=== PATIENT | female | born 1985 | race African-American/Black ===

== ENCOUNTER 2019-01-01 16:38 | Emergency (ER) | payer SELFPAY ==
--- OUTSIDE RECORDS SUMMARY | 2019-01-01 16:40 | XMS REPORT ---
:1985 [facility] Address [address] [place] [address] Care Team Providers Name Role Phone HAYDE SEALS Unavailable Unavailable SARBJIT KEN Unavailable Unavailable Problems This patient has no known problems. Allergies, Adverse Reactions, Alerts This patient has no known allergies or adverse reactions. Medications This patient has no known medications. Results Test Description Test Time Test Comments Text Results Atomic Results Result Comments BLOOD CULTURE 2017-03-01 00:00:00 Test Item Value Reference Range Comments CULTURE (BEAKER) (test vgkg=6299) No growth in 5 days BLOOD [id number] 00:00:00 Test Item Value Reference Range Comments CULTURE (BEAKER) (test hbye=9403) No growth in 5 days BASIC METABOLIC [id number] 16:41:00 Test Item Value Reference Range Comments SODIUM (BEAKER) (test 138 meq/L 136-145 qcsp=470) POTASSIUM (BEAKER) (test 4.5 meq/L 3.5-5.1 Specimen slightly xhti=817) hemolyzed CHLORIDE (BEAKER) (test 100 meq/L 98-107 rigv=511) CO2 (BEAKER) (test 23 meq/L 22-29 tlua=643) BLOOD UREA NITROGEN 7 mg/dL 7-21 (BEAKER) (test wcyz=701) CREATININE (BEAKER) (test 0.79 mg/dL 0.57-1.25 Specimen slightly vugd=188) hemolyzed GLUCOSE RANDOM (BEAKER) 84 mg/dL 70-105 (test chze=709) CALCIUM (BEAKER) (test 10.9 mg/dL 8.4-10.2 amkv=250) EGFR (BEAKER) (test 104 mL/min/1.73 sq m ESTIMATED GFR IS NOT vbue=8972) ACCURATE CREATININE CLEARANCE IN PREDICTING GLOMERULAR FILTRATION RATE. ESTIMATED GFR IS NOT APPLICABLE FOR DIALYSIS PATIENTS. CBC W/PLT COUNT & AUTO [id number] 16:28:00 Test Item Value Reference Range Comments WHITE BLOOD CELL COUNT (BEAKER) (test qkij=577) 12.8 K/ L 4.0-10.0 RED BLOOD CELL COUNT (BEAKER) (test njig=011) 4.90 M/ L 4.00-5.00 HEMOGLOBIN (BEAKER) (test poge=277) 14.3 GM/DL 12.0-15.0 HEMATOCRIT (BEAKER) (test yhue=882) 45.0 % 36.0-45.0 MEAN CORPUSCULAR VOLUME (BEAKER) (test lclg=166) 91.9 fL 82.0-99.0 MEAN CORPUSCULAR HEMOGLOBIN (BEAKER) (test 29.3 pg 27.0-33.0 cbiv=893) MEAN CORPUSCULAR HEMOGLOBIN CONC (BEAKER) (test 31.9 GM/DL 32.0-36.0 zqii=235) RED CELL DISTRIBUTION WIDTH (BEAKER) (test 13.8 % 10.3-14.2 wcwt=013) PLATELET COUNT (BEAKER) (test ssvn=772) 425 K/CU MM 150-430 MEAN PLATELET VOLUME (BEAKER) (test nsjx=754) 7.1 fL 6.5-10.5 NUCLEATED RED BLOOD CELLS (BEAKER) (test 0 /100 WBC 0-0 effq=395) NEUTROPHILS RELATIVE PERCENT (BEAKER) (test 75 % pfiy=779) LYMPHOCYTES RELATIVE PERCENT (BEAKER) (test 18 % mejz=044) MONOCYTES RELATIVE PERCENT (BEAKER) (test 6 % pckb=770) EOSINOPHILS RELATIVE PERCENT (BEAKER) (test 1 % eiwe=902) BASOPHILS RELATIVE PERCENT (BEAKER) (test 0 % exbq=915) NEUTROPHILS ABSOLUTE COUNT (BEAKER) (test 9.56 K/ L 1.80-8.00 qeqq=872) LYMPHOCYTES ABSOLUTE COUNT (BEAKER) (test 2.30 K/ L 1.48-4.50 oflj=125) MONOCYTES ABSOLUTE COUNT (BEAKER) (test 0.76 K/ L 0.00-1.30 fvol=622) EOSINOPHILS ABSOLUTE COUNT (BEAKER) (test 0.09 K/ L 0.00-0.50 grdy=440) BASOPHILS ABSOLUTE COUNT (BEAKER) (test 0.06 K/ L 0.00-0.20 rlbk=632) 0.00CBC W/PLT COUNT & AUTO [id number] 08:40:00 Test Item Value Reference Range Comments WHITE BLOOD CELL COUNT (BEAKER) (test cbfz=741) 13.1 K/ L 4.0-10.0 RED BLOOD CELL COUNT (BEAKER) (test dpwp=558) 3.88 M/ L 4.00-5.00 HEMOGLOBIN (BEAKER) (test ecjx=642) 11.6 GM/DL 12.0-15.0 HEMATOCRIT (BEAKER) (test uchk=289) 36.3 % 36.0-45.0 MEAN CORPUSCULAR VOLUME (BEAKER) (test xcvj=428) 93.6 fL 82.0-99.0 MEAN CORPUSCULAR HEMOGLOBIN (BEAKER) (test 30.1 pg 27.0-33.0 ylcj=237) MEAN CORPUSCULAR HEMOGLOBIN CONC (BEAKER) (test 32.1 GM/DL 32.0-36.0 frqq=810) RED CELL DISTRIBUTION WIDTH (BEAKER) (test 12.5 % 10.3-14.2 adez=194) PLATELET COUNT (BEAKER) (test kcul=261) 231 K/CU MM 150-430 MEAN PLATELET VOLUME (BEAKER) (test zmje=763) 8.5 fL 6.5-10.5 NUCLEATED RED BLOOD CELLS (BEAKER) (test 0 /100 WBC 0-0 qazr=500) NEUTROPHILS RELATIVE PERCENT (BEAKER) (test 89 % fdzt=673) LYMPHOCYTES RELATIVE PERCENT (BEAKER) (test 8 % bxye=730) MONOCYTES RELATIVE PERCENT (BEAKER) (test 3 % uwve=958) EOSINOPHILS RELATIVE PERCENT (BEAKER) (test 0 % rwhb=096) BASOPHILS RELATIVE PERCENT (BEAKER) (test 0 % eunj=303) NEUTROPHILS ABSOLUTE COUNT (BEAKER) (test 11.60 K/ L 1.80-8.00 lieo=737) LYMPHOCYTES ABSOLUTE COUNT (BEAKER) (test 1.05 K/ L 1.48-4.50 aeja=717) MONOCYTES ABSOLUTE COUNT (BEAKER) (test 0.39 K/ L 0.00-1.30 rrpc=538) EOSINOPHILS ABSOLUTE COUNT (BEAKER) (test 0.03 K/ L 0.00-0.50 hxaj=382) BASOPHILS ABSOLUTE COUNT (BEAKER) (test 0.00 K/ L 0.00-0.20 ipwr=608) 0.00BASIC METABOLIC [id number] 07:13:00 Test Item Value Reference Range Comments SODIUM (BEAKER) (test 137 meq/L 136-145 mwvt=218) POTASSIUM (BEAKER) (test 4.6 meq/L 3.5-5.1 wewm=359) CHLORIDE (BEAKER) (test 108 meq/L 98-107 ntbo=532) CO2 (BEAKER) (test 18 meq/L 22-29 hhsv=830) BLOOD UREA NITROGEN 10 mg/dL 7-21 (BEAKER) (test sqan=262) CREATININE (BEAKER) (test 0.68 mg/dL 0.57-1.25 fxhj=608) GLUCOSE RANDOM (BEAKER) 104 mg/dL 70-105 (test yejy=014) CALCIUM (BEAKER) (test 8.6 mg/dL 8.4-10.2 bwby=297) EGFR (BEAKER) (test 123 mL/min/1.73 sq m ESTIMATED GFR IS NOT odil=7260) ACCURATE CREATININE CLEARANCE IN PREDICTING GLOMERULAR FILTRATION RATE. ESTIMATED GFR IS NOT APPLICABLE FOR DIALYSIS PATIENTS.
--- OUTSIDE RECORDS SUMMARY | 2019-01-01 16:40 | XMS REPORT | Clinical Summary ---
:[address] [facility] Address [address] [place] [address] Care Team Providers Name Role Phone Lay Primary Care Provider Allergies No Known Allergies Medications Medication Sig Dispensed Refills Start Date End Date Status HYDROcodone-acetaminop Take 1 tablet by 30 tablet 0 02/17/2017 Active hen (NORCO 5-325) mouth every 6 5-325 mg per tablet (six) hours as needed for Pain. Max Daily Amount: 4 tablets ibuprofen Take 1 tablet (600 20 tablet 0 02/24/2017 Active (ADVIL,MOTRIN) 600 MG mg total) by mouth tablet every 6 (six) hours as needed for Pain for up to 20 doses. Active Problems Problem Noted Date Pain 02/18/2017 Facial swelling 02/18/2017 Unable to eat solid foods 02/18/2017 Abscess of submandibular region 02/16/2017 Family History Medical History Relation Name Comments Diabetes Maternal Aunt Hypertension Mother Relation Name Status Comments Maternal Aunt Mother Social History Tobacco Use Types Packs/Day Years Used Date Current Every Day Smoker 0.25 Tobacco Cessation: Ready to Quit: No; Counseling Given: Yes Alcohol Use Drinks/Week oz/Week Comments Yes Social, never > 5 drinks at one time Sex Assigned at Date Recorded Not on file Job Start Date Occupation Industry Not on file Not on file Not on file Travel History Travel Start Travel End No recent travel history available. Last Filed Vital Signs Not on file Plan of Treatment Not on file Results Not on fileafter 12/31/2017 Advance Directives For more information, please contact:[facility] [phone] Code Status Date Activated Date Inactivated Comments Full Code 02/16/2017 12:53 AM 02/17/2017 8:36 PM This code status was determined by: Patient
[2019-01-01] MEDS ORDERED: ALBUTEROL 2.5 MG/3 ML NEB SOL ONE (18:57)
[2019-01-01] MEDS ORDERED: IPRATROPIUM BROM 0.5MG/2.5ML ONE (18:57)
--- NOTE | 2019-01-01 19:07 | RAD REPORT ---
EXAM DESCRIPTION: RAD - Chest Pa And Lat (2 Views) - 01/01/2019 6:05 pm CLINICAL HISTORY: Cough, patient , abdominal shielding utilized COMPARISON: December 2015 TECHNIQUE: PA and lateral views of the chest were obtained. FINDINGS: The lungs are clear of a focal process. Interstitial markings are similar to comparison. Heart size is normal and central vasculature is within normal limits. No pleural effusion or pneumo thorax seen. No acute bony finding noted. No aortic abnormality. IMPRESSION: No acute cardiopulmonary process. No significant interval change.
--- NOTE | 2019-01-01 19:14 | EDPHYS ---
Physician Documentation [facility] Name: Antonio Travis Age: 33 yrs Sex: Female : 1985 Arrival Date: 01/01/2019 Time: 16:40 Bed 25 Private MD: None, None ED Physician Joshua Alan HPI: 01/01 18:54 This 33 yrs old Black Female presents to ER via Ambulatory with complaints of Painful kb Cough. 18:54 The patient or guardian reports cough, that is intermittent, described as mild, with no kb sputum, difficulty breathing. Onset: The symptoms/episode began/occurred 3 day(s) ago. Severity of symptoms: At their worst the symptoms were moderate, in the emergency department the symptoms are unchanged. Modifying factors: The symptoms are alleviated by nothing, the symptoms are aggravated by nothing. Associated signs and symptoms: The patient has no apparent associated signs or symptoms. The patient has not experienced similar symptoms in the past. The patient has not recently seen a physician. Historical: - Allergies: 16:53 No Known Allergies; hb - Home Meds: 16:53 None [Active]; hb - PMHx: 16:53 None; hb - PSHx: 16:53 D \T\ C; hb - Immunization history:: Adult Immunizations up to date. - Social history:: Smoking status: Patient/guardian denies using tobacco. - Ebola Screening: : No symptoms or risks identified at this time. ROS: 18:52 Constitutional: Negative for fever, chills, and weight loss, Cardiovascular: Negative kb for chest pain, palpitations, and edema, Abdomen/GI: Negative for abdominal pain, nausea, vomiting, diarrhea, and constipation, MS/Extremity: Negative for injury and deformity, Skin: Negative for injury, rash, and discoloration, Neuro: Negative for headache, weakness, numbness, tingling, and seizure. 18:52 Respiratory: Positive for cough, shortness of breath, Negative for dyspnea on exertion, hemoptysis, orthopnea, pleurisy, sputum production. Exam: 18:53 Constitutional: This is a well developed, well nourished patient who is awake, alert, kb and in no acute distress. Head/Face: Normocephalic, atraumatic. Chest/axilla: Normal chest wall appearance and motion. Nontender with no deformity. No lesions are appreciated. Cardiovascular: Regular rate and rhythm with a normal S1 and S2. No gallops, murmurs, or rubs. Normal PMI, no JVD. No pulse deficits. Abdomen/GI: Soft, non-tender, with normal bowel sounds. No distension or tympany. No guarding or rebound. No evidence of tenderness throughout. Skin: Warm, dry with normal turgor. Normal color with no rashes, no lesions, and no evidence of cellulitis. MS/ Extremity: Pulses equal, no cyanosis. Neurovascular intact. Full, normal range of motion. Neuro: Awake and alert, GCS 15, oriented to person, place, time, and situation. Cranial nerves II-XII grossly intact. Motor strength 5/5 in all extremities. Sensory grossly intact. Cerebellar exam normal. Normal gait. 18:53 Respiratory: the patient does not display signs of respiratory distress, Respirations: labored breathing, that is mild, Breath sounds: wheezing: inspiratory expiratory that is mild, is heard diffusely. Vital Signs: 16:52 BP 113 / 52; Pulse 92; Resp 16; Temp 98.3; Pulse Ox 98% on R/A; Pain 9/10; hb MDM: 18:23 Patient medically screened. kb 18:51 Data reviewed: vital signs, nurses notes. Data interpreted: Pulse oximetry: on room air kb is 98 %. Interpretation: normal. 19:13 Counseling: I had a detailed discussion with the patient and/or guardian regarding: the kb historical points, exam findings, and any diagnostic results supporting the discharge/admit diagnosis, radiology results, the need for outpatient follow up, a family practitioner, to return to the emergency department if symptoms worsen or persist or if there are any questions or concerns that arise at home. 01/01 17:30 Order name: Chest Pa And Lat (2 Views) XRAY; Complete Time: 19:09 snw Administered Medications: 18:51 Drug: Albuterol - atroVENT (3:1) (2.5 mg - 0.5 mg) 3 ml Route: Nebulizer; la1 19:18 Follow up: Response: No adverse reaction; Wheezing diminished la1 Disposition: 01/01/19 19:13 Discharged to Home. Impression: Bronchitis, not specified as acute or chronic. - Condition is Stable. - Discharge Instructions: Acute Bronchitis, [id number], Viral Respiratory Infection, [id number]. - Prescriptions for Albuterol Sulfate 90 mcg/actuation - inhale 1-2 puff by INHALATION route every 4-6 hours; 1 Inhaler. - Medication Reconciliation Form, Thank You Letter, Antibiotic Education, Prescription Opioid Use form. - Follow up: Emergency Department; When: As needed; Reason: Worsening of condition. Follow up: Private Physician; When: 2 - 3 days; Reason: Recheck today's complaints, Continuance of care, Re-evaluation by your physician. Addendum: 01/03/2019 07:07 Co-signature as Attending Physician, Joshua Alan MD. r n Signatures: Dispatcher [employer] EDMS Luly Winn, LIU-C SCALP SPECIALIST-Ckb Krysta Vick FNP-C FNP-Csnw Joshua Alan MD MD rn Attema, Lee, RN RN la1 Soni Raymond RN RN Corrections: (The following items were deleted from the chart) 01/01 19:19 19:13 01/01/2019 19:13 Discharged to Home. Impression: Bronchitis, not specified as la1 acute or chronic. Condition is Stable. Forms are Medication Reconciliation Form, Thank You Letter, Antibiotic Education, Prescription Opioid Use. Follow up: Emergency Department; When: As needed; Reason: Worsening of condition. Follow up: Private Physician; When: 2 - 3 days; Reason: Recheck today's complaints, Continuance of care, Re-evaluation by your physician. kb
--- NOTE | 2019-01-01 19:14 | ER ---
Nurse's Notes [facility] Name: Antonio Travis Age: 33 yrs Sex: Female : 1985 Arrival Date: 01/01/2019 Time: 16:40 Bed 25 Private MD: None, None Diagnosis: Bronchitis, not specified as acute or chronic Presentation: 01/01 16:51 Presenting complaint: Patient states: Chest congestion, nonproductive cough, pain with hb cough, and low back pain x 3 days. Denies fever. Transition of care: patient was not received from another setting of care. Onset of symptoms was December 30, 2018. Risk Assessment: Do you want to hurt yourself or someone else? Patient reports no desire to harm self or others. Care prior to arrival: None. 16:51 Method Of Arrival: Ambulatory 16:51 Acuity: YOSHI 4 hb Historical: - Allergies: 16:53 No Known Allergies; hb - Home Meds: 16:53 None [Active]; hb - PMHx: 16:53 None; hb - PSHx: 16:53 D \T\ C; hb - Immunization history:: Adult Immunizations up to date. - Social history:: Smoking status: Patient/guardian denies using tobacco. - Ebola Screening: : No symptoms or risks identified at this time. Screenin:52 Abuse screen: Denies threats or abuse. Nutritional screening: No deficits noted. la1 Tuberculosis screening: No symptoms or risk factors identified. Fall Risk None identified. Assessment: 18:51 General: Appears in no apparent distress. Behavior is calm, cooperative. Pain: Denies la1 pain. Neuro: Level of Consciousness is awake, alert, obeys commands, Oriented to person, place, time, situation. Cardiovascular: Capillary refill < 3 seconds Patient's skin is warm and dry. Respiratory: Airway is patent Respiratory effort is even, unlabored, Respiratory pattern is regular, symmetrical. Respiratory: Breath sounds with wheezes bilaterally. GI: No signs and/or symptoms were reported involving the gastrointestinal system. : No signs and/or symptoms were reported regarding the genitourinary system. 19:18 Reassessment: Patient is alert, oriented x 3, equal unlabored respirations, skin la1 warm/dry/pink. Patient states symptoms have improved. Vital Signs: 16:52 BP 113 / 52; Pulse 92; Resp 16; Temp 98.3; Pulse Ox 98% on R/A; Pain 9/10; hb ED Course: 16:40 Patient arrived in ED. sb2 16:40 None, None is Private Physician. sb2 16:52 Triage completed. hb 16:53 Arm band placed on. hb 18:03 Chest Pa And Lat (2 Views) XRAY In Process Unspecified. EDMS 18:23 Luly Winn F[facility]-C [facility] kb 18:23 Joshua Alan MD is Attending Physician. kb 18:28 Kvng Prado, NAVEEN is Primary Nurse. la1 18:52 Call light in reach. la1 18:52 No provider procedures requiring assistance completed. Patient did not have IV access la1 during this emergency room visit. Administered Medications: 18:51 Drug: Albuterol - atroVENT (3:1) (2.5 mg - 0.5 mg) 3 ml Route: Nebulizer; la1 19:18 Follow up: Response: No adverse reaction; Wheezing diminished la1 Outcome: 19:13 Discharge ordered by . kb 19:18 Discharged to home ambulatory. la1 19:18 Condition: stable 19:18 Discharge instructions given to patient, Instructed on discharge instructions, follow up and referral plans. medication usage, Demonstrated understanding of instructions, follow-up care, medications, Prescriptions given X 1. 19:19 Patient left the ED. la1 Signatures: Dispatcher [employer] EDTX Luly Winn FNP-C FNP-Ckb Attema, Lee, RN RN la1 Soni Raymond RN RN Myra Ribera sb2
== END 2019-01-01 19:19 | disposition home or self-care (01) ==
LOC: ER 16:38
DX: J40 Bronchitis, not specified as acute or chronic (principal)
CPT/HCPCS: 71046; 94640; 99284

== ENCOUNTER 2019-01-12 23:18 | Emergency (ER) | payer SELFPAY ==
--- OUTSIDE RECORDS SUMMARY | 2019-01-12 23:20 | XMS REPORT | Clinical Summary ---
:1985 [facility] Address [address] [place] [address] Care Team Providers Name Role Phone Lay [...] Not on file Results Not on fileafter 01/11/2018 Advance Directives For more information, please contact:[facility] [phone] Code Status Date Activated Date Inactivated Comments Full Code 02/16/2017 12:53 AM 02/17/2017 8:36 PM This code status was determined by: Patient
--- OUTSIDE RECORDS SUMMARY | 2019-01-12 23:20 | XMS REPORT ---
:1985 [facility] Address [address] [place] [address] [address] [place] [id number] Care Team Providers Name Role Phone ARNELHAYDE Unavailable Unavailable SARBJIT KEN Unavailable Unavailable Problems This patient has no known problems. Allergies, Adverse Reactions, Alerts This patient has no known allergies or adverse reactions. Medications This patient has no known medications. Results Test Description Test Time Test Comments Text Results Atomic Results Result Comments BLOOD CULTURE 2017-03-01 00:00:00 Test Item Value Reference Range Comments CULTURE (BEAKER) (test zbtp=5890) No growth in 5 days BLOOD [id number] 00:00:00 Test Item Value Reference Range Comments CULTURE (BEAKER) (test qxku=7527) No growth in 5 days BASIC METABOLIC [id number] 16:41:00 Test Item Value Reference Range Comments SODIUM (BEAKER) (test 138 meq/L 136-145 vqto=190) POTASSIUM (BEAKER) (test 4.5 meq/L 3.5-5.1 Specimen slightly qite=509) hemolyzed CHLORIDE (BEAKER) (test 100 meq/L 98-107 sony=491) CO2 (BEAKER) (test 23 meq/L 22-29 imxn=323) BLOOD UREA NITROGEN 7 mg/dL 7-21 (BEAKER) (test shxc=035) CREATININE (BEAKER) (test 0.79 mg/dL 0.57-1.25 Specimen slightly bjhm=331) hemolyzed GLUCOSE RANDOM (BEAKER) 84 mg/dL 70-105 (test xcdz=568) CALCIUM (BEAKER) (test 10.9 mg/dL 8.4-10.2 jgga=378) EGFR (BEAKER) (test 104 mL/min/1.73 sq m ESTIMATED GFR IS NOT ioml=8433) ACCURATE CREATININE CLEARANCE IN PREDICTING GLOMERULAR FILTRATION RATE. ESTIMATED GFR IS NOT APPLICABLE FOR DIALYSIS PATIENTS. CBC W/PLT COUNT & AUTO [id number] 16:28:00 Test Item Value Reference Range Comments WHITE BLOOD CELL COUNT (BEAKER) (test vvjk=731) 12.8 K/ L 4.0-10.0 RED BLOOD CELL COUNT (BEAKER) (test ohgj=014) 4.90 M/ L 4.00-5.00 HEMOGLOBIN (BEAKER) (test pzgu=009) 14.3 GM/DL 12.0-15.0 HEMATOCRIT (BEAKER) (test mgkn=549) 45.0 % 36.0-45.0 MEAN CORPUSCULAR VOLUME (BEAKER) (test ycpe=808) 91.9 fL 82.0-99.0 MEAN CORPUSCULAR HEMOGLOBIN (BEAKER) (test 29.3 pg 27.0-33.0 jqcz=790) MEAN CORPUSCULAR HEMOGLOBIN CONC (BEAKER) (test 31.9 GM/DL 32.0-36.0 xlhz=215) RED CELL DISTRIBUTION WIDTH (BEAKER) (test 13.8 % 10.3-14.2 kdft=048) PLATELET COUNT (BEAKER) (test hmic=082) 425 K/CU MM 150-430 MEAN PLATELET VOLUME (BEAKER) (test altz=926) 7.1 fL 6.5-10.5 NUCLEATED RED BLOOD CELLS (BEAKER) (test 0 /100 WBC 0-0 efou=111) NEUTROPHILS RELATIVE PERCENT (BEAKER) (test 75 % rlap=897) LYMPHOCYTES RELATIVE PERCENT (BEAKER) (test 18 % knvw=477) MONOCYTES RELATIVE PERCENT (BEAKER) (test 6 % xvnu=243) EOSINOPHILS RELATIVE PERCENT (BEAKER) (test 1 % kwda=867) BASOPHILS RELATIVE PERCENT (BEAKER) (test 0 % bwvn=048) NEUTROPHILS ABSOLUTE COUNT (BEAKER) (test 9.56 K/ L 1.80-8.00 rpgg=788) LYMPHOCYTES ABSOLUTE COUNT (BEAKER) (test 2.30 K/ L 1.48-4.50 ekzm=684) MONOCYTES ABSOLUTE COUNT (BEAKER) (test 0.76 K/ L 0.00-1.30 gjsn=989) EOSINOPHILS ABSOLUTE COUNT (BEAKER) (test 0.09 K/ L 0.00-0.50 yltn=628) BASOPHILS ABSOLUTE COUNT (BEAKER) (test 0.06 K/ L 0.00-0.20 wsaa=030) 0.00CBC W/PLT COUNT & AUTO [id number] 08:40:00 Test Item Value Reference Range Comments WHITE BLOOD CELL COUNT (BEAKER) (test tprp=297) 13.1 K/ L 4.0-10.0 RED BLOOD CELL COUNT (BEAKER) (test pduu=540) 3.88 M/ L 4.00-5.00 HEMOGLOBIN (BEAKER) (test cuek=050) 11.6 GM/DL 12.0-15.0 HEMATOCRIT (BEAKER) (test avia=248) 36.3 % 36.0-45.0 MEAN CORPUSCULAR VOLUME (BEAKER) (test qliq=761) 93.6 fL 82.0-99.0 MEAN CORPUSCULAR HEMOGLOBIN (BEAKER) (test 30.1 pg 27.0-33.0 lsbk=228) MEAN CORPUSCULAR HEMOGLOBIN CONC (BEAKER) (test 32.1 GM/DL 32.0-36.0 hpdr=588) RED CELL DISTRIBUTION WIDTH (BEAKER) (test 12.5 % 10.3-14.2 zvme=972) PLATELET COUNT (BEAKER) (test apyv=153) 231 K/CU MM 150-430 MEAN PLATELET VOLUME (BEAKER) (test dwem=366) 8.5 fL 6.5-10.5 NUCLEATED RED BLOOD CELLS (BEAKER) (test 0 /100 WBC 0-0 buaa=052) NEUTROPHILS RELATIVE PERCENT (BEAKER) (test 89 % tuwn=087) LYMPHOCYTES RELATIVE PERCENT (BEAKER) (test 8 % pccg=684) MONOCYTES RELATIVE PERCENT (BEAKER) (test 3 % llab=646) EOSINOPHILS RELATIVE PERCENT (BEAKER) (test 0 % bwfu=595) BASOPHILS RELATIVE PERCENT (BEAKER) (test 0 % gkhm=684) NEUTROPHILS ABSOLUTE COUNT (BEAKER) (test 11.60 K/ L 1.80-8.00 fxkz=307) LYMPHOCYTES ABSOLUTE COUNT (BEAKER) (test 1.05 K/ L 1.48-4.50 pxgo=125) MONOCYTES ABSOLUTE COUNT (BEAKER) (test 0.39 K/ L 0.00-1.30 ynrt=224) EOSINOPHILS ABSOLUTE COUNT (BEAKER) (test 0.03 K/ L 0.00-0.50 hzpx=636) BASOPHILS ABSOLUTE COUNT (BEAKER) (test 0.00 K/ L 0.00-0.20 zuwz=927) 0.00BASIC METABOLIC [id number] 07:13:00 Test Item Value Reference Range Comments SODIUM (BEAKER) (test 137 meq/L 136-145 xwit=247) POTASSIUM (BEAKER) (test 4.6 meq/L 3.5-5.1 vgku=795) CHLORIDE (BEAKER) (test 108 meq/L 98-107 cynp=392) CO2 (BEAKER) (test 18 meq/L 22-29 bsau=918) BLOOD UREA NITROGEN 10 mg/dL 7-21 (BEAKER) (test zjfc=055) CREATININE (BEAKER) (test 0.68 mg/dL 0.57-1.25 vpfo=285) GLUCOSE RANDOM (BEAKER) 104 mg/dL 70-105 (test idmm=398) CALCIUM (BEAKER) (test 8.6 mg/dL 8.4-10.2 zdig=971) EGFR (BEAKER) (test 123 mL/min/1.73 sq m ESTIMATED GFR IS NOT hxfd=0505) ACCURATE CREATININE CLEARANCE IN PREDICTING GLOMERULAR FILTRATION RATE. ESTIMATED GFR IS NOT APPLICABLE FOR DIALYSIS PATIENTS.
[2019-01-13 02:11] LABS: Hematocrit 37.6 % (36.0-45.0); MPV 9.9 fL (7.6-11.3); RBC Red Blood Cell Count 4.23 M/uL (3.86-4.86)
--- NOTE | 2019-01-13 04:03 | ER ---
Nurse's Notes [facility] Name: Antonio Travis Age: 33 yrs Sex: Female : 1985 Arrival Date: 01/12/2019 Time: 23:21 Bed 23 Private MD: Diagnosis: Antepartum hemorrhage, unspecified, first trimester Presentation: 01/12 23:24 Presenting complaint: Patient states: tripped and fell falling on buttocks. Care prior kl to arrival: None. Mechanism of Injury: Fall. Trauma event details: Injury occurred in the [facility]. 23:24 Acuity: YOSHI 4 kl 23:24 Method Of Arrival: Ambulatory kl 23:27 Transition of care: patient was not received from another setting of care. Onset of kl symptoms was January 12, 2019. Risk Assessment: Do you want to hurt yourself or someone else? Patient reports no desire to harm self or others. Initial Sepsis Screen: Does the patient meet any 2 criteria? No. Patient's initial sepsis screen is negative. Note pt reports blood on tissue when wiping reports 8 weeks . Triage Assessment: 23:26 General: Appears in no apparent distress. Behavior is calm, cooperative. Pain: Denies kl pain. Complains of pain in abdomen Pain currently is 4 out of 10 on a pain scale. 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 - Social history:: Smoking status: Patient/guardian denies using tobacco. - Ebola Screening: : Patient negative for fever greater than or equal to 101.5 degrees Fahrenheit, and additional compatible Ebola Virus Disease symptoms. Screenin/22 00:39 Abuse screen: Denies threats or abuse. Denies injuries from another. Nutritional aa1 screening: No deficits noted. Tuberculosis screening: No symptoms or risk factors identified. Fall Risk None identified. Assessment: 00:38 General: Appears in no apparent distress. comfortable, Behavior is calm, cooperative, aa1 appropriate for age. Pain: Denies pain. Neuro: Level of Consciousness is awake, alert, obeys commands, Oriented to person, place, time, situation, Moves all extremities. Full function Gait is steady. Respiratory: Airway is patent Respiratory effort is even, unlabored, Respiratory pattern is regular, symmetrical. GI: No signs and/or symptoms were reported involving the gastrointestinal system. : Reports vaginal bleeding that is spotty. EENT: No signs and/or symptoms were reported regarding the EENT system. Derm: Skin is intact, is healthy with good turgor, Skin is pink, warm \T\ dry. Musculoskeletal: Circulation, motion, and sensation intact. Capillary refill < 3 seconds, Range of motion: intact in all extremities. 01:49 Reassessment: Patient appears in no apparent distress at this time. Patient and/or aa1 family updated on plan of care and expected duration. Pain level reassessed. Patient is alert, oriented x 3, equal unlabored respirations, skin warm/dry/pink. Awaiting u/s and lab results. 02:45 Reassessment: Patient appears in no apparent distress at this time. Patient and/or aa1 family updated on plan of care and expected duration. Pain level reassessed. Patient is alert, oriented x 3, equal unlabored respirations, skin warm/dry/pink. Awaiting HCG level for u/s. 03:45 Reassessment: Patient and/or family updated on plan of care and expected duration. Pain fc level reassessed. Patient is alert, oriented x 3, equal unlabored respirations, skin warm/dry/pink. Ultrasound just left. Pt states that there has been no change in overall condition. 04:10 Reassessment: Arnold in to see pt and give her the results to her ultrasound. fc Vital Signs: 01/12 23:28 BP 116 / 90; Pulse 82; Resp 16; Temp 98(TE); Pulse Ox 100% on R/A; Pain 4/10; kl 01/13 00:38 BP 119 / 84; Pulse 72; Resp 16; Pulse Ox 100% on R/A; Pain 0/10; aa1 01:49 BP 108 / 55; Pulse 75; Resp 16; Pulse Ox 99% on R/A; Pain 0/10; aa1 02:45 BP 106 / 67; Pulse 71; Resp 16; Pulse Ox 99% on R/A; Pain 0/10; aa1 04:23 BP 107 / 51; Pulse 77; Resp 18; Temp 98.0(O); Pulse Ox 100% on R/A; Pain 2/10; fc ED Course: 01/12 23:21 Patient arrived in ED. am2 23:24 Triage completed. 01/13 00:33 Dina Dennison, RN is Primary Nurse. aa1 00:39 Patient has correct armband on for positive identification. Bed in low position. Call aa1 light in reach. Pulse ox on. NIBP on. Warm blanket given. 01:02 Eleuterio Arnold MD is Attending Physician. 01:20 Initial lab(s) drawn, by nv, sent to lab. Inserted saline lock: 22 gauge in left aa1 antecubital area, using aseptic technique. Blood collected. 01:51 CBC w/o diff Sent. aa1 01:51 Type And Screen Sent. aa1 03:05 HCG-Quantitative Sent. aa1 03:06 Report given to Lashonda Contreras RN. aa1 04:22 No provider procedures requiring assistance completed. IV discontinued, intact, fc bleeding controlled, No redness/swelling at site. Pressure dressing applied. Administered Medications: No medications were administered Outcome: 04:03 Discharge ordered by . 04:22 Discharged to home ambulatory. 04:22 Condition: good 04:22 Discharge instructions given to patient, Instructed on discharge instructions, follow up and referral plans. Demonstrated understanding of instructions, follow-up care, Prescriptions given X none 04:23 Patient left the ED. Signatures: Snehal Mendoza RN RN Dina Dennison, NAVEEN HODGE [facility] Lashonda Contreras RN RN Claudia Kitchen [facility] Eleuterio Arnold MD MD
--- NOTE | 2019-01-13 04:03 | EDPHYS ---
Physician Documentation [facility] Name: Antonio Travis Age: 33 yrs Sex: Female : 1985 Arrival Date: 01/12/2019 Time: 23:21 Bed 23 Private MD: ED Physician Eleuterio Arnold HPI: 01/13 04:08 This 33 yrs old Black Female presents to ER via Ambulatory with complaints of Fall gs Injury, Vaginal Bleeding, + Preg <12wks. 04:08 Details of fall: The patient fell from an upright position, while standing, while gs walking. Onset: The symptoms/episode began/occurred acutely, just prior to arrival. Associated injuries: The patient sustained injury to the low back, contusion. Severity of symptoms: At their worst the symptoms were mild, in the emergency department the symptoms are unchanged. The patient has not experienced similar symptoms in the past. HAD SMALL AMOUNT OF VAG SPOTTING. 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 - Social history:: Smoking status: Patient/guardian denies using tobacco. - Ebola Screening: : Patient negative for fever greater than or equal to 101.5 degrees Fahrenheit, and additional compatible Ebola Virus Disease symptoms. ROS: 01/13 04:08 : Positive for . gs All other systems are negative. Exam: 04:08 Head/Face: Normocephalic, atraumatic. Eyes: Pupils equal round and reactive to light, gs extra-ocular motions intact. Lids and lashes normal. Conjunctiva and sclera are non-icteric and not injected. Cornea within normal limits. Periorbital areas with no swelling, redness, or edema. ENT: Nares patent. No nasal discharge, no septal abnormalities noted. Tympanic membranes are normal and external auditory canals are clear. Oropharynx with no redness, swelling, or masses, exudates, or evidence of obstruction, uvula midline. Mucous membranes moist. Neck: Trachea midline, no thyromegaly or masses palpated, and no cervical lymphadenopathy. Supple, full range of motion without nuchal rigidity, or vertebral point tenderness. No Meningismus. Chest/axilla: Normal chest wall appearance and motion. Nontender with no deformity. No lesions are appreciated. Cardiovascular: Regular rate and rhythm with a normal S1 and S2. No gallops, murmurs, or rubs. Normal PMI, no JVD. No pulse deficits. Respiratory: Lungs have equal breath sounds bilaterally, clear to auscultation and percussion. No rales, rhonchi or wheezes noted. No increased work of breathing, no retractions or nasal flaring. Abdomen/GI: Soft, non-tender, with normal bowel sounds. No distension or tympany. No guarding or rebound. No evidence of tenderness throughout. Skin: Warm, dry with normal turgor. Normal color with no rashes, no lesions, and no evidence of cellulitis. MS/ Extremity: Pulses equal, no cyanosis. Neurovascular intact. Full, normal range of motion. Neuro: Awake and alert, GCS 15, oriented to person, place, time, and situation. Cranial nerves II-XII grossly intact. Motor strength 5/5 in all extremities. Sensory grossly intact. Cerebellar exam normal. Normal gait. 04:08 Constitutional: The patient appears alert, awake. 04:08 Back: pain, that is mild, of the left low back and right low back. Vital Signs: 01/12 23:28 BP 116 / 90; Pulse 82; Resp 16; Temp 98(TE); Pulse Ox 100% on R/A; Pain 4/10; kl 01/13 00:38 BP 119 / 84; Pulse 72; Resp 16; Pulse Ox 100% on R/A; Pain 0/10; aa1 01:49 BP 108 / 55; Pulse 75; Resp 16; Pulse Ox 99% on R/A; Pain 0/10; aa1 02:45 BP 106 / 67; Pulse 71; Resp 16; Pulse Ox 99% on R/A; Pain 0/10; aa1 04:23 BP 107 / 51; Pulse 77; Resp 18; Temp 98.0(O); Pulse Ox 100% on R/A; Pain 2/10; fc MDM: 01:51 Patient medically screened. 04:08 Data reviewed: vital signs, nurses notes, radiologic studies. Counseling: I had a gs detailed discussion with the patient and/or guardian regarding: the historical points, exam findings, and any diagnostic results supporting the discharge/admit diagnosis, the need for outpatient follow up. 01/13 01:03 Order name: Type And Screen gs 01/13 01:03 Order name: CBC w/o diff gs 01/13 01:55 Order name: HCG-Quantitative mt 01/13 02:20 Order name: CBC without Diff; Complete Time: 03:26 EDMS 01/13 02:21 Order name: Type and Screen; Complete Time: 03:26 EDMS 01/13 03:08 Order name: HCG, Quantitative; Complete Time: 03:26 EDMS 01/13 01:03 Order name: US Transvaginal Ob gs Administered Medications: No medications were administered Disposition: 01/13/19 04:03 Discharged to Home. Impression: Antepartum hemorrhage, unspecified, first trimester. - Condition is Stable. - Discharge Instructions: Vaginal Bleeding During , First Trimester. - Medication Reconciliation Form, Thank You Letter, Antibiotic Education, Prescription Opioid Use form. - Follow up: Private Physician; When: 1 - 2 days; Reason: Re-evaluation by your physician. Signatures: Dispatcher [employer] Snehal hSeth RN RN Lashonda Sparrow RN RN fc Starr, Gregory, MD MD gs Corrections: (The following items were deleted from the chart) 04:23 04:03 01/13/2019 04:03 Discharged to Home. Impression: Antepartum hemorrhage, fc unspecified, first trimester. Condition is Stable. Forms are Medication Reconciliation Form, Thank You Letter, Antibiotic Education, Prescription Opioid Use. Follow up: Private Physician; When: 1 - 2 days; Reason: Re-evaluation by your physician. gs
--- NOTE | 2019-01-13 08:02 | RAD REPORT ---
EXAM DESCRIPTION: US - Transvaginal OB - 01/13/2019 3:57 am CLINICAL HISTORY: , vaginal bleeding, fall COMPARISON: None. TECHNIQUE: Endovaginal sonography performed. Preliminary findings provided at the time of the study. FINDINGS: A single normal shaped intrauterine gestational sac identified. Yolk sac and pole ar e both identifiable. Heart rate is 112 BPM. No hematoma or other focal finding within the uterus. Wirer Helper wn-rump length corresponds to 6 week 5 day age. OBDULIA is 09/03/2019. Uterine size is normal. No myometrial mass. No other significant findings. Neither ovary was identifiable. No adnexal mass. No blood or fluid in the cul de sac. IMPRESSION: Single 6 week 5 day IUP with heart rate 112 BPM. No suspicious uterine finding. Nonvisualization of the ovaries. No adnexal mass or fluid in the cul de sac.
== END 2019-01-13 04:23 | disposition home or self-care (01) ==
LOC: ER 23:18
DX: O26.851 Spotting complicating pregnancy, first trimester (principal); S30.0XXA Contusion of lower back and pelvis, initial encounter; W18.30XA Fall on same level, unspecified, initial encounter; Y93.01 Activity, walking, marching and hiking; Y92.9 Unspecified place or not applicable
CPT/HCPCS: 36415; 76817; 84702; 85027; 86850; 86900; 86901; 99284

== ENCOUNTER 2020-01-22 07:08 | Emergency (ER) | payer OTHER, SELFPAY ==
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
--- OUTSIDE RECORDS SUMMARY | 2020-01-22 07:09 | XMS REPORT ---
:1985 Author Organization [facility] Address [address] [place] [address] Care Team Providers Name Role Phone HAYDE [...] Value Reference Range Comments CULTURE (BEAKER) (test gsip=9502) No growth in 5 days BLOOD [id number] 00:00:00 Test Item Value Reference Range Comments CULTURE (BEAKER) (test xzea=2715) No growth in 5 days BASIC METABOLIC [id number] 16:41:00 Test Item Value Reference Range Comments SODIUM (BEAKER) (test 138 meq/L 136-145 httf=728) POTASSIUM (BEAKER) (test 4.5 meq/L 3.5-5.1 Specimen slightly iwtb=554) hemolyzed CHLORIDE (BEAKER) (test 100 meq/L 98-107 wxlk=949) CO2 (BEAKER) (test 23 meq/L 22-29 uodc=841) BLOOD UREA NITROGEN 7 mg/dL 7-21 (BEAKER) (test lvrx=465) CREATININE (BEAKER) (test 0.79 mg/dL 0.57-1.25 Specimen slightly hdkt=154) hemolyzed GLUCOSE RANDOM (BEAKER) 84 mg/dL 70-105 (test vlnk=431) CALCIUM (BEAKER) (test 10.9 mg/dL 8.4-10.2 ooqf=803) EGFR (BEAKER) (test 104 mL/min/1.73 sq m ESTIMATED GFR IS NOT auot=2837) ACCURATE CREATININE CLEARANCE IN PREDICTING GLOMERULAR FILTRATION RATE. ESTIMATED GFR IS NOT APPLICABLE FOR DIALYSIS PATIENTS. CBC W/PLT COUNT & AUTO [id number] 16:28:00 Test Item Value Reference Range Comments WHITE BLOOD CELL COUNT (BEAKER) (test btgv=962) 12.8 K/ L 4.0-10.0 RED BLOOD CELL COUNT (BEAKER) (test iulz=966) 4.90 M/ L 4.00-5.00 HEMOGLOBIN (BEAKER) (test jmyi=977) 14.3 GM/DL 12.0-15.0 HEMATOCRIT (BEAKER) (test wfjp=011) 45.0 % 36.0-45.0 MEAN CORPUSCULAR VOLUME (BEAKER) (test dcsh=648) 91.9 fL 82.0-99.0 MEAN CORPUSCULAR HEMOGLOBIN (BEAKER) (test 29.3 pg 27.0-33.0 okes=337) MEAN CORPUSCULAR HEMOGLOBIN CONC (BEAKER) (test 31.9 GM/DL 32.0-36.0 ydym=093) RED CELL DISTRIBUTION WIDTH (BEAKER) (test 13.8 % 10.3-14.2 cegh=974) PLATELET COUNT (BEAKER) (test gkre=433) 425 K/CU MM 150-430 MEAN PLATELET VOLUME (BEAKER) (test jdfp=407) 7.1 fL 6.5-10.5 NUCLEATED RED BLOOD CELLS (BEAKER) (test 0 /100 WBC 0-0 yuyw=192) NEUTROPHILS RELATIVE PERCENT (BEAKER) (test 75 % dtpr=932) LYMPHOCYTES RELATIVE PERCENT (BEAKER) (test 18 % xbeq=815) MONOCYTES RELATIVE PERCENT (BEAKER) (test 6 % ckqc=474) EOSINOPHILS RELATIVE PERCENT (BEAKER) (test 1 % mava=198) BASOPHILS RELATIVE PERCENT (BEAKER) (test 0 % ksps=811) NEUTROPHILS ABSOLUTE COUNT (BEAKER) (test 9.56 K/ L 1.80-8.00 tejj=636) LYMPHOCYTES ABSOLUTE COUNT (BEAKER) (test 2.30 K/ L 1.48-4.50 jcpe=797) MONOCYTES ABSOLUTE COUNT (BEAKER) (test 0.76 K/ L 0.00-1.30 ecxc=702) EOSINOPHILS ABSOLUTE COUNT (BEAKER) (test 0.09 K/ L 0.00-0.50 orpc=570) BASOPHILS ABSOLUTE COUNT (BEAKER) (test 0.06 K/ L 0.00-0.20 zsot=291) 0.00CBC W/PLT COUNT & AUTO [id number] 08:40:00 Test Item Value Reference Range Comments WHITE BLOOD CELL COUNT (BEAKER) (test ucag=516) 13.1 K/ L 4.0-10.0 RED BLOOD CELL COUNT (BEAKER) (test cywq=824) 3.88 M/ L 4.00-5.00 HEMOGLOBIN (BEAKER) (test kbfc=497) 11.6 GM/DL 12.0-15.0 HEMATOCRIT (BEAKER) (test bkfr=116) 36.3 % 36.0-45.0 MEAN CORPUSCULAR VOLUME (BEAKER) (test bknd=490) 93.6 fL 82.0-99.0 MEAN CORPUSCULAR HEMOGLOBIN (BEAKER) (test 30.1 pg 27.0-33.0 aswp=721) MEAN CORPUSCULAR HEMOGLOBIN CONC (BEAKER) (test 32.1 GM/DL 32.0-36.0 lfau=677) RED CELL DISTRIBUTION WIDTH (BEAKER) (test 12.5 % 10.3-14.2 srpv=064) PLATELET COUNT (BEAKER) (test gibl=172) 231 K/CU MM 150-430 MEAN PLATELET VOLUME (BEAKER) (test fgxu=981) 8.5 fL 6.5-10.5 NUCLEATED RED BLOOD CELLS (BEAKER) (test 0 /100 WBC 0-0 ylzf=179) NEUTROPHILS RELATIVE PERCENT (BEAKER) (test 89 % gqsx=442) LYMPHOCYTES RELATIVE PERCENT (BEAKER) (test 8 % lbym=361) MONOCYTES RELATIVE PERCENT (BEAKER) (test 3 % ejoy=438) EOSINOPHILS RELATIVE PERCENT (BEAKER) (test 0 % mcfk=358) BASOPHILS RELATIVE PERCENT (BEAKER) (test 0 % qvpy=883) NEUTROPHILS ABSOLUTE COUNT (BEAKER) (test 11.60 K/ L 1.80-8.00 rqik=525) LYMPHOCYTES ABSOLUTE COUNT (BEAKER) (test 1.05 K/ L 1.48-4.50 hqlm=835) MONOCYTES ABSOLUTE COUNT (BEAKER) (test 0.39 K/ L 0.00-1.30 gydt=956) EOSINOPHILS ABSOLUTE COUNT (BEAKER) (test 0.03 K/ L 0.00-0.50 caci=900) BASOPHILS ABSOLUTE COUNT (BEAKER) (test 0.00 K/ L 0.00-0.20 bswb=606) 0.00BASIC METABOLIC [id number] 07:13:00 Test Item Value Reference Range Comments SODIUM (BEAKER) (test 137 meq/L 136-145 pbtj=250) POTASSIUM (BEAKER) (test 4.6 meq/L 3.5-5.1 rnnx=102) CHLORIDE (BEAKER) (test 108 meq/L 98-107 daku=950) CO2 (BEAKER) (test 18 meq/L 22-29 glww=359) BLOOD UREA NITROGEN 10 mg/dL 7-21 (BEAKER) (test wkug=094) CREATININE (BEAKER) (test 0.68 mg/dL 0.57-1.25 mxmk=071) GLUCOSE RANDOM (BEAKER) 104 mg/dL 70-105 (test vegw=456) CALCIUM (BEAKER) (test 8.6 mg/dL 8.4-10.2 qxvw=174) EGFR (BEAKER) (test 123 mL/min/1.73 sq m ESTIMATED GFR IS NOT hcsp=8820) ACCURATE CREATININE CLEARANCE IN PREDICTING GLOMERULAR FILTRATION RATE. ESTIMATED GFR IS NOT APPLICABLE FOR DIALYSIS PATIENTS.
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
[2020-01-22] MEDS ORDERED: HYDROCODONE/CHLORPHEN 5 ML/OSYR ONE (07:37)
[2020-01-22] MEDS ORDERED: IPRATROPIUM BROM 0.5MG/2.5ML ONE (07:37)
[2020-01-22] MEDS ORDERED: ALBUTEROL 2.5 MG/3 ML NEB SOL ONE (07:37)
[2020-01-22] MEDS ORDERED: MAGNESIUM OXIDE 400 MG TAB ONE (07:38)
[2020-01-22] MEDS ORDERED: dexAMETHasone 4 MG/ML VIAL ONE (07:41)
[2020-01-22] MEDS ORDERED: LORAZEPAM 1 MG TABLET ONE (10:06)
--- NOTE | 2020-01-22 10:42 | EDPHYS ---
Physician Documentation [facility] Name: Antonio Travis Age: 34 yrs Sex: Female : 1985 Arrival Date: 01/22/2020 Time: 07:11 Bed 20 Private MD: ED Physician Moises Peralta HPI: 01/21 07:34 This 34 yrs old Black Female presents to ER via Unassigned with complaints of Shortness snw Of Breath, Cough. 07:34 The patient has shortness of breath at rest. Onset: The symptoms/episode began/occurred snw suddenly, 3 day(s) ago, and became persistent. Duration: The symptoms are continuous. Associated signs and symptoms: Pertinent positives: This patient does not have any pertinent positive signs or symptoms associated with shortness of breath. Pertinent negatives: fever. Severity of symptoms: At their worst the symptoms were moderate severe in the emergency department the symptoms are unchanged. The patient has experienced similar episodes in the past, multiple times. The patient has not recently seen a physician. 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 - Social history:: Smoking status: Patient reports the use of cigarette tobacco products, denies chronic smoking, but will smoke occasionally. ROS: 07:34 Constitutional: Negative for fever, chills, and weight loss, Eyes: Negative for injury, snw pain, redness, and discharge, ENT: Negative for injury, pain, and discharge, Neck: Negative for injury, pain, and swelling, Cardiovascular: Negative for chest pain, palpitations, and edema, Abdomen/GI: Negative for abdominal pain, nausea, vomiting, diarrhea, and constipation, Back: Negative for injury and pain, : Negative for injury, bleeding, discharge, and swelling, MS/Extremity: Negative for injury and deformity, Skin: Negative for injury, rash, and discoloration, Neuro: Negative for headache, weakness, numbness, tingling, and seizure, Psych: Negative for depression, anxiety, suicide ideation, homicidal ideation, and hallucinations. 07:34 Respiratory: Positive for cough, shortness of breath, wheezing, expiratory. Exam: 07:33 Constitutional: This is a well developed, well nourished patient who is awake, alert, snw and in no acute distress. Head/Face: Normocephalic, atraumatic. Eyes: Pupils equal round and reactive to light, extra-ocular motions intact. Lids and lashes normal. Conjunctiva and sclera are non-icteric and not injected. Cornea within normal limits. Periorbital areas with no swelling, redness, or edema. ENT: Nares patent. No nasal discharge, no septal abnormalities noted. Tympanic membranes are normal and external auditory canals are clear. Oropharynx with no redness, swelling, or masses, exudates, or evidence of obstruction, uvula midline. Mucous membranes moist. Neck: Trachea midline, no thyromegaly or masses palpated, and no cervical lymphadenopathy. Supple, full range of motion without nuchal rigidity, or vertebral point tenderness. No Meningismus. Chest/axilla: Normal chest wall appearance and motion. Nontender with no deformity. No lesions are appreciated. Cardiovascular: Regular rate and rhythm with a normal S1 and S2. No gallops, murmurs, or rubs. Normal PMI, no JVD. No pulse deficits. Abdomen/GI: Soft, non-tender, with normal bowel sounds. No distension or tympany. No guarding or rebound. No evidence of tenderness throughout. Back: No spinal tenderness. No costovertebral tenderness. Full range of motion. Skin: Warm, dry with normal turgor. Normal color with no rashes, no lesions, and no evidence of cellulitis. MS/ Extremity: Pulses equal, no cyanosis. Neurovascular intact. Full, normal range of motion. Neuro: Awake and alert, GCS 15, oriented to person, place, time, and situation. Cranial nerves II-XII grossly intact. Motor strength 5/5 in all extremities. Sensory grossly intact. Cerebellar exam normal. Normal gait. 07:33 Respiratory: mild respiratory distress is noted, Respirations: shallow respirations, tachypnea, that is mild, Breath sounds: bronchial sounds, that are moderate, are heard diffusely, wheezing: Vital Signs: 07:15 BP 122 / 80; Pulse 89; Resp 17; Temp 97.9(O); Pulse Ox 99% on R/A; Height 6 ft. 0 in. ss (182.88 cm); Pain 5/10; 09:12 BP 128 / 70; Pulse 82; Resp 18 S; Temp 97.8(O); Pulse Ox 96% on R/A; ca1 10:02 BP 100 / 70; Pulse 84; Resp 19 S; Pulse Ox 97% on R/A; ca1 10:40 BP 103 / 64; Pulse 79; Resp 18 S; Temp 98.1(O); Pulse Ox 97% on R/A; ca1 MDM: 07:17 Patient medically screened. snw 08:13 Data reviewed: vital signs, nurses notes. Data interpreted: Pulse oximetry: on room air snw is 99 %. Interpretation: normal. Counseling: I had a detailed discussion with the patient and/or guardian regarding: the historical points, exam findings, and any diagnostic results supporting the discharge/admit diagnosis, the need for outpatient follow up, to return to the emergency department if symptoms worsen or persist or if there are any questions or concerns that arise at home. Special discussion: I have referred the patient to see his PCP for further evaluation of high blood pressure. Based on the history and exam findings, there is no indication for further emergent testing or inpatient evaluation. I discussed with the patient/guardian the need to see the primary care provider for further evaluation of the symptoms. Administered Medications: 07:42 Drug: Decadron - Dexamethasone 10 mg {Note: given PO as ordered.} Route: IVP; Site: Other; 10:06 Follow up: Response: No adverse reaction ca1 07:42 Drug: Tussionex Pennkinetic ER 5 ml Route: PO; ss 10:06 Follow up: Response: No adverse reaction ca1 07:42 Drug: Albuterol 2.5 mg Route: Inhalation; ss 07:42 Drug: Albuterol 2.5 mg Route: Inhalation; ss 07:42 Drug: Albuterol 2.5 mg {Note: 3 doses given now as instructed.} Route: Inhalation; ss 07:43 Drug: Magnesium 400 mg Route: PO; ss 10:05 Follow up: Response: No adverse reaction ca1 10:02 Drug: Ativan 1 mg Route: PO; ca1 Disposition: 11:03 Co-signature as Attending Physician, Moises Peralta MD I agree with the assessment and alla plan of care. Disposition: 01/22/20 08:13 Discharged to Home. Impression: Acute bronchitis, unspecified - asthmatic. - Condition is Stable. - Discharge Instructions: Acute Bronchitis, Adult, Asthma, Adult, Form - Asthma Action Plan, Adult, Asthma Attack Prevention, Adult, Rehydration, Adult. - Prescriptions for Zyrtec 10 mg Oral Tablet - take 1 tablet by ORAL route once daily As needed; 20 tablet. Prednisone 20 mg Oral Tablet - take 2 tablet by ORAL route once daily for 5 days; 10 tablet. Albuterol Sulfate 90 mcg/actuation - inhale 1-2 puff by INHALATION route every 4-6 hours; 1 Inhaler. Pepcid 20 mg Oral Tablet - take 1 tablet by ORAL route once daily; 20 tablet. - Medication Reconciliation Form, Thank You Letter, Antibiotic Education, Prescription Opioid Use form. - Follow up: Emergency Department; When: As needed; Reason: Worsening of condition. Follow up: Private Physician; When: 1 - 2 days; Reason: Recheck today's complaints, Continuance of care, Re-evaluation by your physician. Signatures: Moises Peralta MD MD cha Therrien, Shelly, LEHR STRIPPER-C LEHR STRIPPER-Csnw Kristel Constantino, NAVEEN RN ss Jody Ward RN RN ca1 Corrections: (The following items were deleted from the chart) 10:41 08:13 01/22/2020 08:13 Discharged to Home. Impression: Acute bronchitis, unspecified - ca1 asthmatic. Condition is Stable. Forms are Medication Reconciliation Form, Thank You Letter, Antibiotic Education, Prescription Opioid Use. Follow up: Emergency Department; When: As needed; Reason: Worsening of condition. Follow up: Private Physician; When: 1 - 2 days; Reason: Recheck today's complaints, Continuance of care, Re-evaluation by your physician. snw
--- NOTE | 2020-01-22 10:42 | ER ---
Nurse's Notes [facility] Name: Antonio Travis Age: 34 yrs Sex: Female : 1985 Arrival Date: 01/22/2020 Time: 07:11 Bed 20 Private MD: Diagnosis: Acute bronchitis, unspecified-asthmatic Presentation: 01/21 07:15 Chief complaint: Patient states: cough, congestion and difficulty breathing x 3 days. ss Denies fever. Coronavirus screen: The patient has NOT traveled to [place] in the past 14 days. Proceed with normal triage procedures. Ebola Screen: Patient denies exposure to infectious person. Patient denies travel to an Ebola-affected area in the 21 days before illness onset. Initial Sepsis Screen: Does the patient meet any 2 criteria? No. Patient's initial sepsis screen is negative. Does the patient have a suspected source of infection? No. Patient's initial sepsis screen is negative. Risk Assessment: Do you want to hurt yourself or someone else? Patient reports no desire to harm self or others. 07:15 Method Of Arrival: Ambulatory ss 07:15 Acuity: YOSHI 4 ss 09:15 Onset of symptoms was January 22, 2020. 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 - Social history:: Smoking status: Patient reports the use of cigarette tobacco products, denies chronic smoking, but will smoke occasionally. Screenin:45 Abuse screen: Denies threats or abuse. Denies injuries from another. Nutritional ss screening: No deficits noted. Tuberculosis screening: Never had TB. Fall Risk None identified. Assessment: 07:45 General: Appears uncomfortable, Behavior is calm, cooperative, appropriate for age. ss General: Reports feeling ill for 2-3 days, Denies fever. Pain: Complains of pain in chest Pain currently is 5 out of 10 on a pain scale. Neuro: Level of Consciousness is awake, alert, obeys commands, Oriented to person, place, time, situation. Cardiovascular: Capillary refill < 3 seconds is brisk in bilateral fingers. Cardiovascular: Rhythm is regular. Respiratory: Airway is patent Respiratory effort is even, unlabored, Respiratory pattern is regular, symmetrical, Breath sounds with wheezes bilaterally. Respiratory: Reports cough that is non-productive, difficulty breathing x 3 days. GI: Patient currently denies abdominal pain, diarrhea, nausea, vomiting. EENT: Nares are clear Oral mucosa is moist. Reports nasal congestion. Derm: Skin is intact, is healthy with good turgor, Skin is pink, warm \\T\\ dry. normal. Musculoskeletal: Circulation, motion, and sensation intact. Range of motion: intact in all extremities, Swelling absent. 09:12 Reassessment: Patient appears in no apparent distress at this time. Patient and/or ca1 family updated on plan of care and expected duration. Pain level reassessed. Patient is alert, oriented x 3, equal unlabored respirations, skin warm/dry/pink. Kept for observtion. 10:02 Reassessment: Patient appears in no apparent distress at this time. Patient is alert, ca1 oriented x 3, equal unlabored respirations, skin warm/dry/pink. Pt states, "still not feeling well". Notified provider. VO Ativan 1mg SL. Meds given. Kept for observation. 10:40 Reassessment: Patient appears in no apparent distress at this time. Patient is alert, ca1 oriented x 3, equal unlabored respirations, skin warm/dry/pink. Patient states feeling better. Patient states symptoms have improved. Vital Signs: 07:15 BP 122 / 80; Pulse 89; Resp 17; Temp 97.9(O); Pulse Ox 99% on R/A; Height 6 ft. 0 in. ss (182.88 cm); Pain 5/10; 09:12 BP 128 / 70; Pulse 82; Resp 18 S; Temp 97.8(O); Pulse Ox 96% on R/A; ca1 10:02 BP 100 / 70; Pulse 84; Resp 19 S; Pulse Ox 97% on R/A; ca1 10:40 BP 103 / 64; Pulse 79; Resp 18 S; Temp 98.1(O); Pulse Ox 97% on R/A; ca1 ED Course: 07:11 Patient arrived in ED. ag5 07:17 Kryst[facility] V[facility]C [facility] snw 07:30 Kristel Constantino, RN is Primary Nurse. ss 07:44 Triage completed. ss 07:45 Arm band placed on right wrist. ss 07:45 Patient has correct armband on for positive identification. Bed in low position. Call light in reach. 08:14 Moises Peralta MD is Attending Physician. snw 09:17 No provider procedures requiring assistance completed. ca1 10:41 Patient did not have IV access during this emergency room visit. ca1 Administered Medications: 07:42 Drug: Decadron - Dexamethasone 10 mg {Note: given PO as ordered.} Route: IVP; Site: Other; 10:06 Follow up: Response: No adverse reaction ca1 07:42 Drug: Tussionex Pennkinetic ER 5 ml Route: PO; ss 10:06 Follow up: Response: No adverse reaction ca1 07:42 Drug: Albuterol 2.5 mg Route: Inhalation; ss 07:42 Drug: Albuterol 2.5 mg Route: Inhalation; ss 07:42 Drug: Albuterol 2.5 mg {Note: 3 doses given now as instructed.} Route: Inhalation; ss 07:43 Drug: Magnesium 400 mg Route: PO; ss 10:05 Follow up: Response: No adverse reaction ca1 10:02 Drug: Ativan 1 mg Route: PO; ca1 Outcome: 08:13 Discharge ordered by MD. snw 10:41 Discharged to home ambulatory, with family. ca1 10:41 Condition: stable 10:41 Discharge instructions given to patient, Instructed on discharge instructions, follow up and referral plans. medication usage, Demonstrated understanding of instructions, follow-up care, medications, Prescriptions given X 4. 10:41 Patient left the ED. ca1 Signatures: Krysta Vick FNP-C SOCIAL INSURANCE ANALYST-Csnw Kristel Constantino RN RN Jody Ward RN RN ca1 Bree Gutierrez ag5 Corrections: (The following items were deleted from the chart) 10:04 09:12 Reassessment: Patient appears in no apparent distress at this time. Patient ca1 and/or family updated on plan of care and expected duration. Pain level reassessed. Patient is alert, oriented x 3, equal unlabored respirations, skin warm/dry/pink. ca1
[2020-01-22 10:52] VITALS: O2SAT 97
[2020-01-22 10:53] VITALS: BP 103/64; TEMP 98.1
== END 2020-01-22 10:41 | disposition home or self-care (01) ==
LOC: ER 07:08
DX: J20.9 Acute bronchitis, unspecified (principal); J45.909 Unspecified asthma, uncomplicated; F17.210 Nicotine dependence, cigarettes, uncomplicated
CPT/HCPCS: 96374; 99284